=== PATIENT | female | born 1965 | race Caucasian/White ===

== ENCOUNTER 2023-07-11 02:28 | Emergency (ER) | payer BC ==
[2023-07-11] MEDS ORDERED: Take Home: Acetaminophen/Codeine 300 MG/30 MG, 5 Tab Pack PO ONE (02:38)
[2023-07-11] MEDS ORDERED: Ketorolac 30 MG/ML SDV IM ONE (02:38)
== END 2023-07-11 02:58 | disposition home or self-care (01) ==
LOC: VM.ED 02:28
DX: T88.1XXA Other complications following immunization, not elsewhere classified, initial encounter (principal); I10 Essential (primary) hypertension; E11.9 Type 2 diabetes mellitus without complications
CPT/HCPCS: 96372; 99283; A9270-GY; J1885

== ENCOUNTER 2025-04-21 08:16 | Emergency (ER) | payer BC | END 2025-04-21 09:12 | disposition home or self-care (01) | LOC: VM.ED 08:16 | DX: S91.114A Laceration without foreign body of right lesser toe(s) without damage to nail, initial encounter (principal); E11.9 Type 2 diabetes mellitus without complications; I10 Essential (primary) hypertension; E78.00 Pure hypercholesterolemia, unspecified; Z79.899 Other long term (current) drug therapy; Z79.84 Long term (current) use of oral hypoglycemic drugs; W25.XXXA Contact with sharp glass, initial encounter | CPT/HCPCS: 73620-RT; 99283 ==